=== PATIENT | female | born 1930 | race Caucasian/White ===

== ENCOUNTER 2018-05-14 07:51 | Emergency (ER) | payer OTHER ==
[~2018-05-14] VITALS: Ht 160 cm; Wt 59.0 kg
[2018-05-14 07:56] VITALS: Ht 160 cm; Wt 59.0 kg
[2018-05-14 09:44] VITALS: BP 113/46
== END 2018-05-14 10:17 | disposition home or self-care (01) ==
LOC: ED 07:51
DX: S00.90XA Unspecified superficial injury of unspecified part of head, initial encounter (principal); I10 Essential (primary) hypertension; E11.9 Type 2 diabetes mellitus without complications; E78.00 Pure hypercholesterolemia, unspecified; X58.XXXA Exposure to other specified factors, initial encounter; Y93.89 Activity, other specified; Y92.89 Other specified places as the place of occurrence of the external cause; Y99.8 Other external cause status

== ENCOUNTER 2019-02-08 15:51 | Inpatient (IN) | payer OTHER ==
[~2019-02-08] VITALS: Ht 167.6 cm; Wt 64.0 kg
[2019-02-08 15:55] VITALS: Ht 167.6 cm; Wt 64.0 kg
[2019-02-08 16:52] LABS: BASOPHIL % 0.9 % (0-2); PLATELET COUNT 391 x10^3mcL (130-400); RED CELL DISTRIBUTION WIDTH 19.4 % (11.5-14.5)
[2019-02-08 16:56] LABS: CALCIUM 9.3 mg/dL (8.5-10.1); CARBON DIOXIDE 28.5 mmol/L (21-32); CHLORIDE SERUM 96 mmol/L (98-107); CREATININE SERUM 0.8 mg/dL (0.6-1.0); GLUCOSE SERUM 159 mg/dL (74-106); POTASSIUM SERUM 3.7 mmol/L (3.5-5.1); SODIUM SERUM 135 mmol/L (136-145)
[2019-02-08 17:02] LABS: ALBUMIN 3.7 g/dL (3.4-5.0); ALKALINE PHOSPHATASE 80 U/L (46-116); ALT/SGPT 25 U/L (14-59); AST/SGOT 23 U/L (15-37); BILIRUBIN TOTAL 0.7 mg/dL (0.20-1.00); LIPASE 143 IU/L (73-393); MAGNESIUM 1.3 mg/dL (1.8-2.4); TOTAL PROTEIN, SERUM 7.1 g/dL (6.4-8.2)
[2019-02-08 18:52] LABS: microscopic required? NO
[2019-02-08 19:12] LABS: UA SPECIFIC GRAVITY >=1.030 (1.005-1.035); urine erythrocyte NEGATIVE (NEGATIVE)
[2019-02-08] MEDS ORDERED: AMLODIPINE BESY10 M2 PO (19:47)
[2019-02-08] MEDS ORDERED: GOOD SENSE ASPI81 M3 (19:48)
[2019-02-08] MEDS ORDERED: ATORVASTATIN CA40 M1 PO (19:48)
[2019-02-08] MEDS ORDERED: NATURE'S BLEND500 MG (19:48)
[2019-02-08] MEDS ORDERED: JANUVIA100 M1 (19:49)
[2019-02-08] MEDS ORDERED: COZAAR100 MG (19:50)
[2019-02-08] MEDS ORDERED: METFORMIN HYD1000 M2 PO (19:50)
[2019-02-08] MEDS ORDERED: BD ULTRA-FINE1 EAC5 (19:50)
[2019-02-08] MEDS ORDERED: [UNRECOGNIZED DRUG - OTHER] (19:50)
[2019-02-08] MEDS ORDERED: AMBIEN10 MG (19:51)
[2019-02-08 22:28] VITALS: BP 156/63
[2019-02-08 22:42] LABS: T3 TOTAL 0.76 ng/mL
[2019-02-08 23:17] LABS: PHOSPHOROUS 3.5 mg/dL (2.5-4.9)
[2019-02-08 23:24] LABS: CHOLESTEROL/HDL RATIO 2.3
[2019-02-08 23:27] LABS: FREE T4 1.2 ng/dL (0.76-1.46); FREE THYROXINE INDEX 3.7 ug/dL (1.4-4.5); T4(THYROXINE) 9.9 ug/dL (4.7-13.3)
[2019-02-09 05:05] VITALS: BP 132/58
[2019-02-09 06:09] LABS: CALCIUM 8.1 mg/dL (8.5-10.1); CARBON DIOXIDE 27.6 mmol/L (21-32); CHLORIDE SERUM 102 mmol/L (98-107); CREATININE SERUM 0.6 mg/dL (0.6-1.0); GLUCOSE SERUM 128 mg/dL (74-106); MAGNESIUM 1.7 mg/dL (1.8-2.4); POTASSIUM SERUM 3.4 mmol/L (3.5-5.1); SODIUM SERUM 137 mmol/L (136-145)
[2019-02-09 07:31] LABS: BASOPHIL % 0.9 % (0-2); PLATELET COUNT 313 x10^3mcL (130-400); RED CELL DISTRIBUTION WIDTH 18.8 % (11.5-14.5)
[2019-02-09 08:37] VITALS: BP 149/63
[2019-02-09] MEDS ORDERED: ZOF4 PO (13:29)
[2019-02-09 14:44] VITALS: BP 149/63
[2019-02-09 16:57] VITALS: BP 132/55
== END 2019-02-09 17:28 | disposition home or self-care (01) | DRG 392 ==
LOC: ED 15:51 → MU 21:51
PROVIDERS: Emergency Medicine; ADMIT Family Medicine
DX: A08.4 Viral intestinal infection, unspecified (principal); E87.1 Hypo-osmolality and hyponatremia; E11.65 Type 2 diabetes mellitus with hyperglycemia; E86.0 Dehydration; E83.42 Hypomagnesemia; I10 Essential (primary) hypertension; D72.829 Elevated white blood cell count, unspecified; Z68.25 Body mass index [BMI] 25.0-25.9, adult; Z79.84 Long term (current) use of oral hypoglycemic drugs; F03.90 Unspecified dementia, unspecified severity, without behavioral disturbance, psychotic disturbance, mood disturbance, and anxiety
CPT/HCPCS: 82962; 83880; 84439; 87804; 97110-GP; 97116-GP; 97530-GP; J2405; J3475; J7030; Q0092